=== PATIENT | male | born 1980 | race Caucasian/White ===

== ENCOUNTER 2016-09-24 15:00 | Inpatient (IN) | payer OTHER ==
[~2016-09-24] VITALS: Ht 175.3 cm; Wt 117.9 kg
--- NOTE | ~2016-09-24 | PN ---
Unit #: [id number] #: [id number] Patient: MIKE DELAROSA [id number] [facility] [address] [place] [address] [id number] MR#: [id number] NAME: MIKE DELAROSA ROOM: [facility] Age: 36 Sex: M Admission Date: 09/24/2016 : 1980 Attending Physician: Zhang Horn M.D. Admitting Physician: Zhang Horn M.D. Primary Care Physician: Primary Care Physician Jojo YUAN PROGRESS NOTES DATE OF SERVICE 09/26/2016 DISCUSSION Mr. Altamirano is a 36-year-old male seen on 09/26/2016. Patient interviewed, chart reviewed. Obtained information from nursing staff. Patient reports making progress. Decrease in anxiety. overall making progress. Vital signs 97.6, 83, 17, 123/79. Complete review of systems unremarkable. MENTAL STATUS EXAMINATION General appearance, patient dressed casually. Attention span and concentration fair. Oriented to time, place and person. Mood and affect labile. Speech monotone. Thought process concrete. Patient denied any thoughts of harming self or others or any psychotic symptoms. Recent and remote memory poor. Insight and judgement poor. DIAGNOSES 1. Major depressive disorder recurrent severe F33.2. 2. 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 ASSESSMENT/PLAN Advise to continue with current medication and therapeutic protocol. If needed consider further adjustment of medication. Dictated by... Colton Tellez/david TD: 09/27/2016 04:08 JOB #: [id number] Unit #: [id number] #: [id number] Patient: MIKE DELAROSA [facility] PROGRESS NOTES Page 1 of 1 X Zhang Horn MD X PROGRESS NOTE
--- NOTE | ~2016-09-24 | PN ---
Unit #: [id number] #: [id number] Patient: MIKE DELAROSA [id number] [facility] [address] [place] [address] [id number] I MR#: [id number] NAME: MIKE DELAROSA ROOM: 76 Age: 36 Sex: M Admission Date: 09/24/2016 : 1980 Attending Physician: Zhang Horn M.D. Admitting Physician: Zhang Horn M.D. Primary Care Physician: Primary Care Physician Jojo YUAN PROGRESS NOTES DATE OF SERVICE 09/25/2016 DISCUSSION Mr. Altamirano is a 36-year-old male seen on 09/25/2016. Patient interviewed, chart reviewed. Obtained information from nursing staff. Patient was compliant and cooperative. Mood sad, dysphoric, withdrawn, isolative, guarded. Complete review of systems unremarkable. MENTAL STATUS EXAMINATION General appearance, patient dressed casually. Attention span and concentration fair. Oriented to place and person. Mood and affect sad, dysphoric. Speech monotone. Thought process concrete. Patient denied any thoughts of harming self or others but having passive suicidal ideation. Recent and remote memory poor. Insight and judgement poor. DIAGNOSES Major depressive disorder recurrent severe. 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 Alcohol use disorder severe F10.20. ASSESSMENT/PLAN Advise to continue with current medication and therapeutic protocol. Continue with a detox protocol and add Celexa 20 mg daily for depression. Dictated by... Colton Tellez/david TD: 09/26/2016 02:08 JOB #: [id number] Unit #: [id number] #: [id number] Patient: MIKE DELAROSA [facility] PROGRESS NOTES Page 1 of 1 X Zhang Horn MD X PROGRESS NOTE
--- NOTE | ~2016-09-24 | PA ---
Unit #: [id number] #: [id number] Patient: [facility]OSA [id number] [facility] [address] [place] [address] [id number] I MR#: [id number] NAME: MIKE DELAROSA ROOM: P176 Age: 36 Sex: M Admission Date: 09/24/2016 : 1980 Date of Assessment: 09/25/2016 Attending Physician: Zhang Horn M.D. Admitting Physician: Zhang Horn M.D. Primary Care Physician: Primary Care Physician No PSYCHIATRIC ASSESSMENT INFORMANTS The patient reliability, fair informant and chart reliability, good. CHIEF COMPLAINT Detox and depression. HISTORY OF PRESENT ILLNESS Mr. Altamirano is a 36-year-old male, presented with the above-mentioned complaint. The patient has a history of previous admission, last admitted in 02/2016. The patient presented with relapse 6 weeks ago. The patient reported triggers by his brother using drugs around him. The patient reported using 1 g of meth on the weekend via IV. The patient reported drinking 8 or more beers, last use on 09/23/2016. The patient reported daily use of marijuana. The patient reported suicidal ideation with a plan to overdose. The patient reported feeling hopeless and worthless due to addiction and increased depression. Denied any homicidal ideation, intent, or plan. The patient reported at night seeing people on the roof. Needing inpatient admission at this time for psychiatric stabilization. PAST PSYCHIATRIC HISTORY Remarkable for [facility] of [facility] FAMILY HISTORY AND SOCIAL HISTORY The patient has a good support system from girlfriend. No history of abuse. No legal charges. Family history is remarkable for history of drug overdose in mother and grandmother. MEDICAL HISTORY Remarkable for history of asthma and hepatitis C. Musculoskeletal; muscle strength and tone, no atrophy or abnormal movement. Gait normal. MEDICATION HISTORY The patient is on trazodone and inhaler. ALLERGIES No known drug allergies. SUBSTANCE ABUSE HISTORY Tobacco use, age of onset 12; alcohol, age of onset 12; marijuana, age of onset 12; opioid, age of onset 31; amphetamine, age of onset 31. Longest period of sobriety 6 months, last period of sobriety 6 months ago. The patient reported history of blackout, hepatitis, withdrawal symptom, and Unit #: [id number] #: [id number] Patient: MIKE DELAROSA history of IV drug use. The patient reported abdominal cramping, muscle cramping, depressed mood, irritability, nervousness, poor concentration, restlessness, trouble falling asleep, and tremors. REVIEW OF SYSTEMS HEENT: Eyes, clear. Ears, nose, mouth, and throat; clear. CARDIOVASCULAR: Unremarkable. RESPIRATORY: Unremarkable. GI: Unremarkable. : Unremarkable. SKIN: Unremarkable. LYMPH NODE: Unremarkable. NEUROLOGIC: Unremarkable. ENDOCRINE: Unremarkable. HEMATOLOGIC: Unremarkable. ALLERGIC/IMMUNOLOGIC: Unremarkable. MUSCULOSKELETAL: Muscle strength and tone, no atrophy or abnormal movement. Gait normal. MENTAL STATUS EXAMINATION CONSTITUTIONAL: Measurement of vital signs; temperature 97.6, heart rate 62, respiratory rate 17, and blood pressure 117/82. Height 5 feet 9 inches and weight 260 pounds. GENERAL APPEARANCE: The patient dressed casually. The patient did not show any facial deformity. MUSCULOSKELETAL: Please see above. PSYCHIATRIC EXAMINATION Description of speech; regular rate, normal volume, normal articulation, and coherent. Description of thought process, goal directed. Description of association, intact. Description of abnormal psychotic thinking; the patient denied any hallucination, but sad, depressed, suicidal ideation, and mood lability. Description of the patient's judgment: Concerning everyday activity, poor. Social situation, poor. Concerning psychiatric condition, poor. Complete mental status examination; oriented in time, place, and person. Attention span and concentration, fair. Language, able to name object and repeat phrases. Fund of knowledge, aware of current event and passive vocabulary intact. Mood and affect, sad and dysphoric. Insight and judgment, fair to poor. ASSETS AND LIABILITIES Assets, the patient is articulate and able to take care of his ADL. Liability, history of substance abuse and depression. ADMITTING DIAGNOSES Psychiatric: Major depressive disorder, recurrent, severe, F33.2; amphetamine use disorder, severe, F15.20; and alcohol use disorder, severe, F10.20. Secondary diagnosis: Deferred. Medical diagnoses: History of hepatitis C and obesity. Stressors: Psychosocial stressors. PSYCHIATRIC PLAN AND TREATMENT GOAL AND DISCHARGE PLAN Unit #: [id number] #: [id number] Patient: MIKE DELAROSA 1. Advised to admit the patient on the inpatient unit. Provide safe, supportive, and structured environment. 2. Ordered labs; CBC, CMP, UA, and UDS. 3. Precaution for aggression, self-harm, detox protocol, and detox monitoring. 4. Advised to resume home medication. The patient to attend all the programing, group therapy, individual therapy, and chemical dependency group. If needed, consider medication for depression. Treatment goal to attain euthymic mood, gain insight into his problem, and learn coping skills. DISCHARGE PLAN Plan to stabilize the patient and consider followup in outpatient program. ESTIMATED LENGTH OF STAY 3 to 5 days. Dictated by... Zhang Horn M.D. BETHEL/sharon TD: 09/25/2016 16:51 JOB #: [id number] PSYCHIATRIC ASSESSMENT Page 1 of 1 X Zhang Horn MD X PSYCHIATRIC ASSESSMENT
--- NOTE | ~2016-09-24 | HP ---
Unit #: [id number] #: [id number] Patient: MIKE DELAROSA [id number] [facility] [address] [place] [address] [id number] I MR#: [id number] NAME: MIKE DELAROSA ROOM: P176 Age: 36 Sex: M Admission Date: 09/24/2016 : 1980 Attending Physician: Zhang Horn M.D. Admitting Physician: Zhang Horn M.D. Primary Care Physician: Primary Care Physician No HISTORY AND PHYSICAL HISTORY OF PRESENT ILLNESS Mike is a 36 year old admitted to [facility] because of his continued drug use. He has had other admissions to this facility for the same. PAST MEDICAL HISTORY 1. Long history of alcohol abuse. 2. History of illicit substance abuse to include methamphetamine and IV heroin. 3. Hepatitis C. 4. Obesity. PAST SURGICAL HISTORY Nothing reported. ALLERGIES No known drug allergies. SOCIAL HISTORY Smokes one-half pack per day. Denies alcohol. Admits to long history of opioid abuse to include IV heroin. FAMILY HISTORY Medically noncontributory. REVIEW OF SYSTEMS CONSTITUTIONAL: No fever or chills. HEENT: Denies any sore throat, ear pain or runny nose. CARDIOVASCULAR: Denies chest pain, irregular heart rhythm or palpitations. CHEST: Denies shortness of breath or cough. No hemoptysis. GASTROINTESTINAL: Denies nausea, vomiting, diarrhea or chronic constipation. ENDOCRINE: Denies history of increased thirst or urination. No recent significant weight loss or gain. GENITOURINARY: Denies dysuria, frequency, or hematuria. SKIN: Denies any rashes. HEMATOLOGIC: Denies history of increased bleeding or bruising. MUSCULOSKELETAL: Denies any hot, swollen joints. No generalized muscle pain. NEUROLOGIC: Denies problems with vision or speech. No frequent, severe headaches. No numbness, tingling or weakness in any extremities. Denies loss of bladder or bowel control. CURRENT MEDICATIONS Unit #: [id number] #: [id number] Patient: MIKE DELAROSA 1. Detox protocol. 2. Flexeril p.r.n. 3. Proventil inhaler p.r.n. 4. Mobic 15 mg q. day. PHYSICAL EXAMINATION GENERAL: Alert, morbidly obese. No apparent distress. VITAL SIGNS: Blood pressure 120/82, heart rate 80, respirations 16, and temperature 98.6. WEIGHT: 260. HEIGHT: 5 feet 9 inches. SKIN: Warm and dry without rash or lesion. HEENT: Normocephalic. TMs not viewed. Oral and nasal passages clear. Conjunctivae clear. PERRLA. EOMs intact. NECK: Supple without lymphadenopathy or thyromegaly. HEART: Regular rate and rhythm without murmur. LUNGS: Clear. ABDOMEN: Soft, nontender. : Not done. EXTREMITIES: No evidence of cyanosis, clubbing or edema. Moves all without focal deficit. NEUROLOGICAL: Grossly within normal limits. Cranial Nerves: II: Visual coley are intact. III, IV AND : Extraocular movements are intact. Pupils are equal, round and reactive to light. V: Facial sensation is grossly normal. VII: Facial movements and expression are normal. VIII: Auditory acuity grossly intact. IX, X: Uvula is midline. Phonation is normal. XI: Patient shrugs shoulders and turns head normally. XII: Tongue protrudes in the midline. Sensory and Motor Function: Sensory and motor sensation is grossly normal. Motor: moves all extremities well. Coordination: Gait is normal. Deep Tendon Reflexes: Intact. IMPRESSION Psychiatric admission. RECOMMENDATIONS PSYCHIATRIC: Per psychiatrist. MEDICAL: I see no contraindication to participate in this facility's activities. MEDICAL PROGNOSIS Good. MEDICAL CONDITION Stable. Dictated by... Meliza Azevedo P.A.-C. for Colton Benito/shan TD: 09/25/2016 12:44 JOB #: [id number] Unit #: [id number] #: [id number] Patient: MIKE DELAROSA HISTORY AND PHYSICAL Page 1 of 1 X Meliza Azevedo HISTORY AND PHYSICAL
--- NOTE | ~2016-09-24 | DS ---
Unit #: [id number] #: [id number] Patient: MIKE DELAROSA [id number] [facility] [address] [place] [address] [id number] MR#: [id number] NAME: MIKE DELAROSA ROOM: 76 Age: 36 Sex: M Admission Date: 09/24/2016 : 1980 Discharge Date: 09/27/2016 Attending Physician: Zhang Horn M.D. Primary Care Physician: Primary Care Physician No DISCHARGE SUMMARY REASON FOR ADMISSION Detox, depression. DIAGNOSTIC STUDIES LABORATORY DATA: Remarkable for ALT 53. Urine drugs screen positive for amphetamine and marijuana. HOSPITAL COURSE The patient was admitted to inpatient unit on September 24 and discharged on 09/27/2016. The patient was treated with group therapy, individual therapy, and medication management. The patient was responsive to treatment, showed improvement. Subsequently, the patient was discharged with a plan to follow up in outpatient program. DISCHARGE MEDICATIONS 1. Celexa 20 mg daily for depression. 2. Mobic 15 mg once daily for pain. DISCHARGE DIAGNOSES PSYCHIATRIC: Major depressive disorder, recurrent, severe, F33.2. Amphetamine use disorder, severe, F15.20 Alcohol use disorder, severe, F10.20. Cannabis abuse, moderate, F12.20. SECONDARY: Deferred. MEDICAL: History of hepatitis C. Obesity. STRESSORS: Psychosocial stressor. FOLLOWUP CARE The patient to follow up in outpatient clinic as per rn social services. CONDITION ON DISCHARGE The patient pleasant, cooperative. Denied any psychotic symptom or any suicidal ideation. PROGNOSIS Guarded. DIET AND ACTIVITY As tolerated. Dictated by... Unit #: [id number] #: [id number] Patient: MIKE DELAROSA Colton Tellez/shan TD: 09/28/2016 07:03 JOB #: [id number] DISCHARGE SUMMARY Page 1 of 1 X Zhang Horn MD X DISCHARGE SUMMARY
[2016-09-25 09:50] LABS: BASOPHIL% 0.4 % (0-2.5); EOSINOPHIL# 0.2 X10e3 (0-0.7); EOSINOPHIL% 3.1 % (0.0-7.0); HEMATOCRIT 42.4 % (38.0-50.0); HEMOGLOBIN 13.8 gm/dL (13.0-16.0); LYMPHOCYTE# 2.1 X10e3 (1.0-3.5); LYMPHOCYTE% 34.2 % (17.0-45.0); MEAN CELL VOLUME 88.4 FL (83-96); MEAN CORPUSCULAR HEMOGLOBIN 28.8 PG (28-34); MEAN CORPUSCULAR HGB CONC 32.5 g/dL (30-36); MEAN PLATELET VOLUME 7.5 FL (6.5-11.5); MONOCYTE# 0.6 X10e3 (0-1.0); MONOCYTE% 9.6 % (3.0-12.0); NEUTROPHIL# 3.3 X10e3 (1.5-7.1); NEUTROPHIL% 52.7 % (40-75); PLATELET COUNT 196 X10e3 (140-420); RED BLOOD COUNT 4.79 X10e (3.90-5.60); RED CELL DISTRIBUTION WIDTH 13.6 % (11.0-15.5); WHITE BLOOD COUNT 6.3 X10e3 (4.0-10.5)
[2016-09-25 09:51] LABS: DIFF IND NO
[2016-09-25 10:02] LABS: ALBUMIN SERUM 3.5 g/dL (3.5-5.0); BILIRUBIN,TOTAL 0.3 mg/dL (0.2-2.0); CALCIUM SERUM 8.5 mg/dL (8.4-10.2); CREATININE SERUM 0.8 mg/dL (0.6-1.4); POTASSIUM 3.7 mmol/L (3.5-5.1); PROTEIN TOTAL SERUM 6.6 g/dL (6.0-8.3)
[2016-09-26 09:46] LABS: URINE APPEARANCE CLEAR; URINE BILIRUBIN NEG (NEG); URINE BLOOD NEG (NEG); URINE COLOR DK YELLOW; URINE GLUCOSE NEG (NEG); URINE KETONE NEG (NEG); URINE LEUKOCYTE ESTERASE NEG (NEG); URINE NITRATE NEG (NEG); URINE PH 5.5 (5-8); URINE PROTEIN NEG (NEG); URINE SPECIFIC GRAVITY 1.019 (1.003-1.035); URINE UROBILINOGEN 0.2 MG/DL (NEG)
[2016-09-26 11:47] LABS: AMPHETAMINE POS (NEG); BARBITURATES NEG (NEG); BENZODIAZEPINES POS (NEG); COCAINE NEG (NEG); MARIJUANA POS (NEG); OPIATES NEG (NEG); TRICYCLIC ANTIDEPRESSANTS POS (NEG); U METHADONE NEG (NEG)
== END 2016-09-27 12:25 | disposition home or self-care (01) | DRG 885 ==
LOC: P1E 18:09
PROVIDERS: Psychiatry & Neurology Psychiatry
PROC: HZ2ZZZZ Detoxification Services for Substance Abuse Treatment (ICD-10-PCS; principal; 2016-09-24)
DX: F33.2 Major depressive disorder, recurrent severe without psychotic features (principal); F15.20 Other stimulant dependence, uncomplicated; R45.851 Suicidal ideations; F10.20 Alcohol dependence, uncomplicated; E66.9 Obesity, unspecified; Z86.19 Personal history of other infectious and parasitic diseases; Z81.8 Family history of other mental and behavioral disorders; F12.20 Cannabis dependence, uncomplicated; Z68.38 Body mass index [BMI] 38.0-38.9, adult
CPT/HCPCS: 80053; 80307; 81003; 85025; 86592